=== PATIENT | female | born 1990 | race Caucasian/White ===

== ENCOUNTER 2021-08-25 23:04 | Emergency (ER) | payer OTHER ==
[~2021-08-25] VITALS: Ht 157.5 cm; Wt 59.0 kg
[2021-08-25] MEDS ORDERED: IBUPROFEN 400 MG TABLET ONE (23:43)
[2021-08-26] MEDS ORDERED: IBUPROFEN 400 MG TABLET PO ONE
[2021-08-26 01:37] VITALS: BP 125/85
== END 2021-08-26 01:37 | disposition home or self-care (01) ==
LOC: ER 23:07
DX: R07.89 Other chest pain (principal); R03.0 Elevated blood-pressure reading, without diagnosis of hypertension
CPT/HCPCS: 71045-TC; 84703-TC